=== PATIENT | female | born 2000 | race Caucasian/White ===

== ENCOUNTER 2020-12-07 17:29 | Emergency (ER) | payer SELFPAY ==
[2020-12-07 17:30] VITALS: BP 138/76; PULSE 120; RESP 18; TEMP 37; O2SAT 99; BMI 45.4
--- NOTE | 2020-12-07 17:55 | XR_ITS ---
PROCEDURE INFORMATION: Exam: XR Right Ankle Exam date and time: 12/07/2020 5:55 PM Age: 20 years old Clinical indication: Injury or trauma; Fall; Blunt trauma; Injury details: Large patient fell down some steps, right ankle pain. TECHNIQUE: Imaging protocol: XR Right ankle. Views: 3 or more views. COMPARISON: No relevant prior studies available. FINDINGS: Bones/joints: No fracture or dislocation. Soft tissues: Soft tissue swelling overlying the lateral malleolus. No underlying acute fracture or dislocation. IMPRESSION: Soft tissue swelling overlying lateral malleolus but no underlying acute fracture or dislocation.
--- NOTE | 2020-12-07 17:55 | XR_ITS ---
PROCEDURE INFORMATION: Exam: XR Right Foot Exam date and time: 12/07/2020 5:55 PM Age: 20 years old Clinical indication: Injury or trauma; Fall; Blunt trauma; Patient HX: Large patient fell down some steps, right foot injury. TECHNIQUE: Imaging protocol: XR Right foot. Views: 3 or more views. COMPARISON: No relevant prior studies available. FINDINGS: Bones/joints: Normal. Soft tissues: Normal. IMPRESSION: No acute findings.
[2020-12-07 17:56] VITALS: PULSE 86; RESP 19; TEMP 37.1; O2SAT 98; BMI 45.4
--- NOTE | 2020-12-07 18:22 | HMH.EDUTC ---
[facility] [place] Disposition Clinical Impression: Ankle sprain Qualifiers: Encounter type: initial encounter Involved ligament of ankle: unspecified ligament Laterality: right Qualified Code(s): S93.401A - Sprain of unspecified ligament of right ankle, initial encounter Disposition: Home, Self-Care Condition on Discharge: Good Instructions: How to Use Crutches, How To Perform RICE (Rest, Ice, Compress, Elevate), How to Use a Walking Boot Additional Instructions: *RICE, Rest the extremity, Ice 15-20 minutes 3-4 times daily, Compress- wear the holger wrap as discussed as much as possible to help reduce swelling and pain, Elevate the extremity when at rest *Holger wrap is for support and help control swelling, use it except in the shower. Be sure that is not to tight but not to loose either *Elevate when resting *Ibuprofen every 6-8 hours as needed for pain an inflammation. If need something more can take Tylenol in between doses of Ibuprofen to help Immediately follow up with your family doctor for new or worsening of symptoms, or no noticeable improvement over the next 3-5 days Follow up with your Family Doctor if needed Follow up with Podiatry if no improvement for further evaluation and treatment Return if needed Straight to ER if any life threatening symptoms Referrals: Provider,Referral, MD [Primary Care Provider] - As needed Tosha Jolly DPM [Staff Physician] - Pastora Almendarez APRN [Nurse Practitioner] - Time of Disposition: 18:43 Medical Decision Making - Raymundo Inquiry Pt receiving controlled substance: No Raymundo was queried for this patient: No Vital Signs: 12/07/20 17:30 12/07/20 17:56 Temperature 98.6 F 98.7 F Temperature Source Oral Oral Pulse Rate [Right] 120 H 86 Respiratory Rate 18 19 Blood Pressure [Right Arm] 138/76 Blood Pressure Mean [Right Arm] 96 02 Sat by Pulse Oximetry 99 98 Oxygen Delivery Method Room Air - Radiology Data #1 Image(s): Ankle Image Reviewed: Yes I have reviewed radiologist's interpretation IMPRESSION: Soft tissue swelling overlying lateral malleolus but no underlying acute fracture or dislocation. #2 Image(s): Foot/Toes Image Reviewed: Yes I have reviewed radiologist's interpretation Preliminary Findings: No Fracture Seen IMPRESSION: No acute findings [facility] [place] HPI - General Stated complaint: AO 12/07 1700 injured R ankle Time Seen by Provider: 12/07/20 18:22 Mode of Arrival: Ambulatory Source of Information: Patient Limitations: No Limitations Description of Symptoms (Recalled from Triage Doc. by RN): pt states she fell down stairs and felt her R ankle buckle and pop multiple times. R ankle is swollen and painful. HEENT Symptoms (Recalled from RN notes): No Resp Symptoms (Recalled from RN notes): No Skin Symptoms (Recalled from RN notes): No MS Symptoms (Recalled from RN notes): Yes (R ankle pain) Functional Status (Recalled from RN notes): na - History of Present Illness Provider Complaint: Patient states that she was walking down the stairs when she felt her right ankle buckle and roll States that she felt it pop multiple times States that ever since she has been having pain and swelling States that happened about an hour before arrival and denies any other injury - Worker's Comp Is this a Worker's Comp case?: No H History - Hepatitis A Screen Drug use history?: No High risk sexual behaviors?: No History of sexually transmitted infection?: No Currently employed?: No Childcare worker?: No Do you have indoor plumbing?: Yes Do you have electricity?: Yes Attestation statement:: This patient has been screened for Hepatitis A risk factors. I have reviewed the patient's past medical history: Yes ROS Obtained: Yes All systems reviewed & no additional complaints, Yes Systems reviewed as appropriate & no additional complaints - Constitutional Constitutional: Reports system reviewed and no additional complaints, except as docu, Denies body ache, Denie
[2020-12-07 19:07] VITALS: BP 111/89; PULSE 82; RESP 19; TEMP 36.6
== END 2020-12-07 19:10 | disposition home or self-care (01) ==
PROVIDERS: Emergency Provider Nurse Practitioner
DX: S93.401A Sprain of unspecified ligament of right ankle, initial encounter (principal); W10.9XXA Fall (on) (from) unspecified stairs and steps, initial encounter; Y92.9 Unspecified place or not applicable
CPT/HCPCS: 73610; 73630; 99202; G0463